=== PATIENT | male | born 1965 | race Caucasian/White ===

== ENCOUNTER 2016-05-17 09:27 | Emergency (ER) | payer SELFPAY ==
--- NOTE | ~2016-05-17 | ER ---
PATIENT'S NAME: HOLA HENNESSY [facility] AGE: 51 Y [address] ROOM: [place] [address] LOCATION: [facility] ADMIT DATE: 05/17/2016 ER/Outpatient Report DISCHARGE DATE: 05/17/2016 FAMILY PHYSICIAN: PHYSICIAN, NO ATTENDING PHYSICIAN: Herve Burns CHIEF COMPLAINT: Right dislocated shoulder. HISTORY OF PRESENT ILLNESS: Approximately 45 minutes prior to arrival, the patient was trying to move a piece of furniture and felt his right shoulder slipped out of joint. He has had this happened multiple times in the past. He just was unable to get back in on his own. He hails from [place] originally, but does spend significant amounts of time in [facility]. He works as a paid contractor. He is in town at this time for his mother's , for which he is currently late secondary to this issue. He states he is otherwise relatively healthy. He does have some tingling in his hand, but otherwise feels okay. He has not taken any medication for this. PAST MEDICAL HISTORY: Documented on the record and reviewed by me. SOCIAL HISTORY: Documented on the record and reviewed by me. MEDICATIONS: Documented on the record and reviewed by me. ALLERGIES: DOCUMENTED ON THE RECORD AND REVIEWED BY ME. REVIEW OF SYSTEMS: All systems reviewed and negative except as noted in the HPI. PHYSICAL EXAMINATION: VITAL SIGNS: Blood pressure 133/76, pulse 92, respiratory rate is 18, temperature 97.6, and SpO2 is 99% on room air. GENERAL: Age-appropriate male. No obvious pain or distress, sitting upright on exam table. NEUROLOGIC: Awake, alert. GCS is 15. No focal deficits other than some decreased sensation in the right hand. No other asymmetry. HEENT: Normocephalic, atraumatic. Eyes are PERRL. Oropharynx is clear. NECK: Supple. Trachea is midline. HEART: Heart is regular rate and rhythm by peripheral pulses. PATIENT'S NAME: HOLA HENNESSY [facility] AGE: 51 Y [address] ROOM: [place] [address] LOCATION: [facility] ADMIT DATE: 05/17/2016 ER/Outpatient Report DISCHARGE DATE: 05/17/2016 FAMILY PHYSICIAN: PHYSICIAN, NO ATTENDING PHYSICIAN: Herve Burns CHEST: Even and unlabored respirations. ABDOMEN: Benign to inspection. EXTREMITIES: There is marked deformity and step-off the right shoulder. The hand is cool with brisk capillary refill and some tingling. No other acute abnormalities. The other extremities are unremarkable. SKIN: Warm, dry, and intact except as noted above. LABS AND X-RAYS: None. IMPRESSION: Nontraumatic right shoulder dislocation. EMERGENCY DEPARTMENT COURSE: The patient was seen and evaluated as above. Clinically, the patient's right shoulder was dislocated. Upon the patient's request, no medications or x-rays were obtained. Gentle anterior traction was placed and the shoulder popped back into place. The patient felt a large clunk as did I. The patient had almost immediate return of normal sensation in his right hand and became symmetric in exam. He was placed in a sling per his preference, did not receive any x-rays, was given a prescription for some pain medicine and discharged to go to his mother's . All questions were answered, and the patient was encouraged to follow up with an orthopedic provider for further evaluation and treatment as needed. MD IVET ARMSTRONG/any /[id number] d: 05/17/168 t: 05/24/16 0647, OUTPATIENT REPORT
== END 2016-05-17 10:10 | disposition disaster alternative care site (69) ==
LOC: GACC 09:27
DX: M24.411 Recurrent dislocation, right shoulder (principal)

== ENCOUNTER 2016-05-26 13:21 | Emergency (ER) | payer SELFPAY ==
--- NOTE | ~2016-05-26 | ER ---
PATIENT'S NAME: HOLA HENNESSY [facility] AGE: 51 Y [address] ROOM: [place] [id number] LOCATION: [facility] ADMIT DATE: 05/26/2016 ER/Outpatient Report DISCHARGE DATE: 05/26/2016 FAMILY PHYSICIAN: PHYSICIAN, NO ATTENDING PHYSICIAN: Heide Gallego Time of Arrival: 1321 hours. Time Seen: 1325 hours. IDENTIFICATION: A 51-year-old male who was evaluated by Dr. Ortega, 3rd year resident. Please refer to her dictation. This is a 51-year-old gentleman who has a history of recurrent right shoulder dislocations and has had surgery twice. He was here on May 17 with a shoulder dislocation. Today, he was doing his shoulder exercises when the dislocation occurred. He said it is usually inferior and a little bit posterior. PAST MEDICAL HISTORY: As noted in the nursing notes. ALLERGIES: NOTED IN THE NURSING NOTES. MEDICATIONS: As noted in the nursing notes. PHYSICAL EXAMINATION: The patient has a little bit tingling sensation to his 4th and 5th fingers on the right hand. He has an obvious inferior dislocation clinically. Strength is normal. EMERGENCY DEPARTMENT COURSE: The patient did not want to wait for x-ray to have it relocated. Informed consent was obtained. Dr. Ortega proceeded with closed reduction using gentle anterior traction and the shoulder was successfully relocated. Postop x-ray reveals chronic degenerative changes in the shoulder, previous surgical changes, no acute fracture or dislocation. Pending Radiology over-read. IMPRESSION: Right shoulder dislocation. PLAN: I saw and evaluated the patient. I was present for the relocation. Discussed with the resident and agree with the resident's findings and plan as documented in the resident's note. The patient was given Valium 2 mg t.i.d. PATIENT'S NAME: HOLA HENNESSY [facility] AGE: 51 Y [address] ROOM: [place], [place] [address] LOCATION: [facility] ADMIT DATE: 05/26/2016 ER/Outpatient Report DISCHARGE DATE: 05/26/2016 FAMILY PHYSICIAN: PHYSICIAN, SUMMER ATTENDING PHYSICIAN: Heide Gallego p.r.n. spasm, dispensed 5 with 0 refills. He will take Tylenol or ibuprofen for pain. MD MARYBETH TAY/any /[id number] d: 05/26/16 1854 t: 05/28/16 194, OUTPATIENT REPORT
--- NOTE | ~2016-05-26 | ER ---
PATIENT'S NAME: HOLA HENNESSY [facility] AGE: 51 Y [address] ROOM: [place] [address] LOCATION: [facility] ADMIT DATE: 05/26/2016 ER/Outpatient Report DISCHARGE DATE: 05/26/2016 FAMILY PHYSICIAN: PHYSICIAN, NO ATTENDING PHYSICIAN: Ann Carroll HISTORY OF PRESENT ILLNESS: The patient is a 51-year-old male who presented with a chief complaint of shoulder out of place on the right. He says that this is a recurrent problem for him. He has had previous surgeries in 2004 and of capsular shift and then a James procedure. He states that he was seen recently for a similar problem. He was at home today and doing range of motion exercises and states that the shoulder just popped out of place. He is admitting to the start of some tingling in his fourth and fifth distal digits on the right hand. Otherwise, sensation is intact, range of motion has been decreased, and his muscles have been spasming since the incident. The patient denies any other symptoms of chest pain, shortness of breath, nausea, vomiting, abdominal pain, headache, or vision change. The previous visit to the ER for the same problem, the patient did not undergo any x-ray imaging and just had the shoulder relocated and was sent home with an arm sling. The patient is requesting no pain medications or muscle relaxers at this time and would just like to "get it back in place." ALLERGIES: THE PATIENT HAS AN ALLERGY TO COMPAZINE. MEDICATIONS: He is taking no medications. SOCIAL HISTORY: The patient denies smoking, alcohol, or drug use. REVIEW OF SYSTEMS: Complete and comprehensive review of systems was completed and is negative except as noted above in the HPI. PHYSICAL EXAMINATION: VITAL SIGNS: Height 6 feet 3 inches stated, weight 109.4 kg, blood pressure 169/96, pulse 100, respiratory rate 18, temperature 97.5 TM, and O2 is 97% on room air. The patient rates pain as 7/10. GENERAL: The patient is in mild distress and is pacing back and forth secondary to pain. SKIN: Warm, dry, and intact. NEUROLOGIC: Alert and oriented. CARDIOVASCULAR: Regular rate upon my exam. Pulses strong and equal PATIENT'S NAME: HOLA HENNESSY [facility] AGE: 51 Y [address] ROOM: [place], [place] [address] LOCATION: [facility] ADMIT DATE: 05/26/2016 ER/Outpatient Report DISCHARGE DATE: 05/26/2016 FAMILY PHYSICIAN: PHYSICIAN, NO ATTENDING PHYSICIAN: Ann Carroll bilaterally. CHEST: Clear to auscultation bilaterally. ABDOMEN: Soft and nontender. Positive bowel sounds. Appears well developed. EXTREMITIES: Upper Extremity Exam: There is noticeable deformity of the right shoulder and appears to have stepoff at the right shoulder. Muscles are spasming in the biceps, the triceps, and the pectoralis muscles. There is tenderness to palpation on the anterior and aspect of the shoulder. Range of motion is decreased in all aspects at the shoulder. Decreased range of motion at the elbow with flexion secondary to pain. The patient is able to move wrist. Hand is warm with cap refill less than 2 seconds. Sensation intact. LABORATORY DATA: No pre-x-ray was performed. EMERGENCY DEPARTMENT COURSE: The patient underwent a closed reduction of the right shoulder after consent was obtained through distal traction at the elbow, and the shoulder popped back into place. The patient felt the large clunk and started feeling improvement in his pain immediately. The patient states that the numbness and tingling resolved after the procedure. The patient was placed in an immobile sling and underwent postreduction x-ray which, per my read, showed proper placement of the humeral head in the shoulder joint, but the final radiology read is still pending. IMPRESSION: Right shoulder dislocation. DISPOSITION: The patient was discharged to home in good condition. Instructed to keep his arm in the sling until he is able to follow up with an orthopedic surgeon or establish care and follow up with a primary care provider. He was given a script for 2 mg Valium x5 tablets to assist with the muscle spasming he is currently experiencing. Instructed to take up to 800 mg of ibuprofen or 3000 mg of Tylenol a day to help with pain. Use some ice therapy when he gets home, and he can continue this daily 3 or 4 times a day 20 minutes at a time. Heat therapy will also help with muscle spasms. BARBIE PACHECO MED STUDENT, MD RESIDENT FOR ANN CARROLL MD SLL/modl PATIENT'S NAME: HOLA HENNESSY [facility] AGE: 51 Y [address] ROOM: [place] [address] LOCATION: [facility] ADMIT DATE: 05/26/2016 ER/Outpatient Report DISCHARGE DATE: 05/26/2016 FAMILY PHYSICIAN: SUMMER COOPER ATTENDING PHYSICIAN: Ann Carroll /[id number] d: 05/26/161923 t: 05/28/161944, OUTPATIENT REPORT
== END 2016-05-26 13:57 | disposition disaster alternative care site (69) ==
LOC: GACC 13:21
PROC: 0RSJXZZ Reposition Right Shoulder Joint, External Approach (ICD-10-PCS; principal; 2016-05-26)
DX: S43.004A Unspecified dislocation of right shoulder joint, initial encounter (principal); Z88.8 Allergy status to other drugs, medicaments and biological substances; X58.XXXA Exposure to other specified factors, initial encounter

== ENCOUNTER 2016-08-01 07:45 | Emergency (ER) | payer SELFPAY ==
--- NOTE | ~2016-08-01 | ER ---
PATIENT'S NAME: HOLA HENNESSY [facility] AGE: 51 Y [address] ROOM: [place] [address] LOCATION: [facility] ADMIT DATE: 08/01/2016 ER/Outpatient Report DISCHARGE DATE: 08/01/2016 FAMILY PHYSICIAN: PHYSICIAN, NO ATTENDING PHYSICIAN: Ann Gallego Time of Arrival: 0745 hours. Time of Evaluation: 0800 hours. IDENTIFICATION: A 51-year-old male. CHIEF COMPLAINT: Left foot injury. HISTORY OF PRESENT ILLNESS: The patient was carrying heavy oak desk on one end with a friend on the other. The friend dropped his end and Hola could not hold his end up, so it came down on his left foot. He is complaining of pain in the top of the left foot as well as the left great toe. No other injury. PAST MEDICAL HISTORY: ALLERGIES: TO COMPAZINE. CURRENT MEDICATIONS: Denies. MEDICAL PROBLEMS: Denies. PRIOR SURGERIES: No prior hospitalizations other than tonsillectomy and right shoulder surgery. SOCIAL HISTORY: The patient is from [place], but apparently in the [facility] frequently. Tobacco use, he chews 1/2 can per day. Alcohol use, denies. Drug use, denies. REVIEW OF SYSTEMS: All systems reviewed and negative other than what is noted in the HPI. PHYSICAL EXAMINATION: VITAL SIGNS: Height 6 feet 3 inches and weight 110 kg. Blood pressure PATIENT'S NAME: HOLA HENNESSY [facility] AGE: 51 Y [address] ROOM: [place] [address] LOCATION: [facility] ADMIT DATE: 08/01/2016 ER/Outpatient Report DISCHARGE DATE: 08/01/2016 FAMILY PHYSICIAN: PHYSICIAN, NO ATTENDING PHYSICIAN: Ann Gallego 205/91, pulse 77, respirations 16, temperature 98, and saturations 98% on room air. Recheck blood pressure 175/80. GENERAL: A 51-year-old male, in no obvious distress. HEENT: Unremarkable. LUNGS: Clear to auscultation. HEART: Regular rate and rhythm. ABDOMEN: Soft, nondistended, nontender. SKIN: [place], warm, and dry. No lesions or rashes noted. NEURO: The patient is alert and oriented x4. No focal deficit. EXTREMITIES: Right lower extremity: Full range of motion. No deformities noted. Left lower extremity: Decreased range of motion secondary to pain. He has some swelling noted over the dorsum of his foot. He is tender to palpation of the great toe. No palpable deformities. Slight bruising is noted. No injury to his distal aspect or nail bed. IMAGING DATA: X-ray of his left foot: Minimally displaced fracture of the head of the proximal phalanx of the first digit, pending Radiology over-read. IMPRESSION: Fractured first proximal phalanx. PLAN: Cast shoe. Crutches, weight bear as tolerated. Ice and elevate. Tylenol or Advil for pain. [place] 5/325 one to two p.o. q.4-6 hours p.r.n. pain, dispensed 20 with 0 refills, and follow up with Dr. Blackwell next week. Follow up sooner if any problems or concerns. The patient understands and agrees, and all questions have been answered. ANN GALLEGO MD CAR/modl /[id number] d: 08/01/16 1158 t: 08/01/16 1500, OUTPATIENT REPORT
== END 2016-08-01 08:44 | disposition disaster alternative care site (69) ==
LOC: GACC 07:45
DX: S92.412A Displaced fracture of proximal phalanx of left great toe, initial encounter for closed fracture (principal); F17.220 Nicotine dependence, chewing tobacco, uncomplicated; Z88.8 Allergy status to other drugs, medicaments and biological substances; Z90.89 Acquired absence of other organs; Z98.890 Other specified postprocedural states; W20.8XXA Other cause of strike by thrown, projected or falling object, initial encounter

== ENCOUNTER 2016-10-16 17:20 | Emergency (ER) | payer SELFPAY ==
--- NOTE | ~2016-10-16 | ER ---
PATIENT'S NAME: HOLA HENNESSY [facility] AGE: 51 Y [address] ROOM: [place] [address] LOCATION: [facility] ADMIT DATE: 10/16/2016 ER/Outpatient Report DISCHARGE DATE: 10/16/2016 FAMILY PHYSICIAN: PHYSICIAN, NO ATTENDING PHYSICIAN: Heide Gallego Time of Patient's Arrival: 1720 hours. Time of Patient's Evaluation: 1724 hours. CHIEF COMPLAINT: Right arm swelling injury. HISTORY OF PRESENT ILLNESS: This is a 51-year-old male who presents to the ER, who states around 4 o'clock this afternoon he was trying to change a tire on his vehicle. He states he was pulling on a wrench when he felt pain into his right biceps area. He states he is unable to flex and extend his arm at his elbow. He states that he has had a previous right shoulder replacement in May of 2016. He denies any pain across the clavicle area. No pain to the back. The patient denies any other injury at this time. ALLERGIES: COMPAZINE. MEDICATIONS: Please see medication list in nurse's notes. PAST MEDICAL HISTORY: He had a replacement of his right shoulder and tonsillectomy. SOCIAL HISTORY: Denies smoking, drug, or alcohol use. REVIEW OF SYSTEMS: CONSTITUTIONAL: Denies any change in weight or fatigue. MUSCULOSKELETAL: He is complaining of right upper extremity pain. SKIN: No lesions or rashes. PHYSICAL EXAMINATION: VITAL SIGNS: Weight 109.5 kg taken, blood pressure is 146/94, pulse 82, respirations 20, temperature 97.9 degrees tympanically, and saturations 96% on room air. Jasson Coma Score is 15. GENERAL: Alert, calm, well-developed male, in mild distress. EXTREMITIES: He has decreased range of motion of his right upper extremity secondary to pain. The patient is unable to flex his right upper extremity at PATIENT'S NAME: HOLA HENNESSY [facility] AGE: 51 Y [address] ROOM: [place] [address] LOCATION: [facility] ADMIT DATE: 10/16/2016 ER/Outpatient Report DISCHARGE DATE: 10/16/2016 FAMILY PHYSICIAN: PHYSICIAN, NO ATTENDING PHYSICIAN: Heide Gallego the elbow joint. He does have a scar to the anterior portion of his shoulder. It does look to be a slight deformity there, but he states that is his normal appearance, however, he does have swelling and significant tenderness into the biceps area. He also has pain to the insertion site where the biceps attaches in the elbow area as well. The patient has difficulty with supination and pronation of his forearm. He has a good radial pulse. He has good sensation distally and good capillary refill. He has no tenderness across the clavicle area or the scapula with palpation. He has full range of motion in all other limbs. NEUROLOGIC: Cranial nerves 2 through 12 grossly intact. Gait is steady without assistance. LABORATORY DATA: None were done. X-RAYS: Showed no obvious bone deformity. IMPRESSION: Right biceps rupture. ASSESSMENT AND PLAN: I discussed the patient's care Dr. Trevizo at a shift change, and he also evaluated the patient. The patient did not want anything here for pain because he wanted to be able to drive himself. We will place him in a shoulder immobilizer. He needs to ice the area. I will send him home with [place] to use as directed for severe pain, otherwise, he may use ibuprofen every 6 hours. We would like him to follow up with his orthopedic for followup care. We did provide him with a business card to see Dr. Vallejo if he cannot get into his orthopedic doctor. The patient understands and agrees with care. BRIGID DIAMOND PA-C FOR MD SHENG TAY/any /[id number] ATTENDING ADDENDUM: I saw and evaluated the patient. I have discussed with the PA, agree with the PA's findings and plan and agree with the documented note above. HUSSAIN TREVIZO DO d: 10/16/162145 t: 10/21/161937, OUTPATIENT REPORT
== END 2016-10-16 18:11 | disposition disaster alternative care site (69) ==
LOC: GACC 17:20
PROC: 2W3AX1Z Immobilization of Right Upper Arm using Splint (ICD-10-PCS; principal; 2016-10-16)
DX: S46.211A Strain of muscle, fascia and tendon of other parts of biceps, right arm, initial encounter (principal); Z88.8 Allergy status to other drugs, medicaments and biological substances; Z90.89 Acquired absence of other organs; Z96.611 Presence of right artificial shoulder joint; X50.9XXA Other and unspecified overexertion or strenuous movements or postures, initial encounter